=== PATIENT | female | born 1990 | race Caucasian/White ===

== ENCOUNTER 2021-12-12 10:22 | Emergency (ER) | payer MEDICAID ==
[~2021-12-12] VITALS: Ht 167.6 cm; Wt 90.0 kg
[~2021-12-12 10:22] MED LIST: NO HOME MEDS
[2021-12-12 10:32] VITALS: BP 131/80
[2021-12-12 11:26] LABS: HEMOGLOBIN 14.2 g/dl (12.0-16.0); RED CELL DISTRIBUTION WIDTH 13.1 % (11.5-14.5)
[2021-12-12 11:27] LABS: CLARITY,URINE CLOUDY (Clear); COLOR,URINE YELLOW (Yellow); GLUCOSE, URINE NEGATIVE (Neg); KETONES,URINE NEGATIVE (Neg); LEUKOCYTE ESTERASE ,URINE NEGATIVE (Neg); NITRITES, URINE NEGATIVE (Neg); OCCULT BLOOD,URINE TRACE-INTACT (Neg); PH,URINE 6.5 (4.8-8.0); PROTEIN,URINE NEGATIVE (Neg)
[2021-12-12 11:29] LABS: BASOPHILS # (AUTO) 0.1 X10'3 (0-0.2); BASOPHILS % (AUTO) 0.7 % (0-1); EOSINOPHILS # (AUTO) 0.2 X10'3 (0-0.9); EOSINOPHILS % (AUTO) 2.3 % (0-6); HEMATOCRIT 42.2 % (35.0-45.0); LYMPHOCYTES # (AUTO) 2.2 X10'3 (1.1-4.8); LYMPHOCYTES % (AUTO) 31.2 % (21-51); MEAN CORPUSCULAR HEMOGLOBIN 30.7 PG (27.0-31.0); MEAN CORPUSCULAR HGB CONC 33.7 g/dL (33.0-36.5); MEAN CORPUSCULAR VOLUME 91.1 FL (78-98); MEAN PLATELET VOLUME 8.9 FL (7.4-10.4); MONOCYTES # (AUTO) 0.6 X10'3 (0-0.9); MONOCYTES % (AUTO) 8.8 % (2-12); PLATELET COUNT 223 X10'3 (140-440); RED BLOOD COUNT 4.63 X10'6 (4.20-5.60)
[2021-12-12 11:29] LABS: URINE HCG NEGATIVE (NEG)
[2021-12-12 11:34] LABS: SQUAMOUS EPITHELIAL CELL,UR MANY /LPF (FEW); UA COLLECTION TYPE CLN CATCH MIDSTREAM
[2021-12-12 11:35] LABS: BACTERIA,URINE 1+ /HPF (Neg); MUCUS STRANDS MODERATE /LPF (Neg); RBC,URINE 0-2 /HPF (0-2); WBC,URINE 0-4 /HPF (0-4)
[2021-12-12 11:41] LABS: ALANINE AMINOTRANSFERASE 32 U/L (12-78); ALBUMIN 3.9 G/DL (3.4-5.0); ALBUMIN/GLOBULIN RATIO 1.3 (1.1-1.5); ALKALINE PHOSPHATASE 128 IU/L (46-116); ANION GAP 9 (8-16); ASPARTATE AMINO TRANSFERASE 14 U/L (10-37); BILIRUBIN,TOTAL 0.2 MG/DL (0.1-1.0); BLOOD UREA NITROGEN 9 MG/DL (7-18); BUN/CREATININE RATIO 14.5 (6.6-38.0); CALCIUM 8.1 MG/DL (8.5-10.1); CHLORIDE 108 MMOL/L (99-107); CREATININE 0.62 MG/DL (0.40-0.90); GLUCOSE 92 MG/DL (70-104); LIPASE 114 U/L (73-393); POTASSIUM 3.4 MMOL/L (3.5-5.1); SODIUM 143 MMOL/L (135-145); TOTAL CARBON DIOXIDE 26.1 MMOL/L (24-32); TOTAL PROTEIN 6.9 G/DL (6.4-8.2); eGFR > 90 ML/MIN
[2021-12-12] MEDS ORDERED: meclizine 12.5mg tablet PO ONE (14:10)
[2021-12-12] MEDS ORDERED: MECL-159 PO (16:02)
[2021-12-12] MEDS ORDERED: ibuprofen tablet 400 MG TABLET PO ONE (16:05)
== END 2021-12-12 16:36 | disposition home or self-care (01) ==
LOC: ER 10:22
DX: R42 Dizziness and giddiness (principal); R19.7 Diarrhea, unspecified; J45.909 Unspecified asthma, uncomplicated; Z88.0 Allergy status to penicillin; Z88.1 Allergy status to other antibiotic agents; Z79.899 Other long term (current) drug therapy
CPT/HCPCS: 36415; 80053; 81001; 81025; 83690; 85025; 99283; J8597

== ENCOUNTER 2021-12-13 08:35 | Emergency (ER) | payer MEDICAID ==
[~2021-12-13] VITALS: Ht 167.6 cm; Wt 88.6 kg
[~2021-12-13 08:35] MED LIST changes: +MECL-159 PO
[2021-12-13 08:36] VITALS: BP 144/84
--- NOTE | 2021-12-13 09:58 | NUR ---
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 Dr. Garza aware.
== END 2021-12-13 09:58 | disposition left against medical advice (07) ==
LOC: ER 08:35
DX: R42 Dizziness and giddiness (principal); Z53.21 Procedure and treatment not carried out due to patient leaving prior to being seen by health care provider